=== PATIENT | female | born 1940 | race Caucasian/White ===

== ENCOUNTER 2021-08-05 14:03 | Inpatient (IN) ==
[2021-08-05 15:26] LABS: Basophils % 0.5 % (0.0-0.8); Eosinophils % 2.2 % (0.00-10.9); Hematocrit 20.7 VOL% (35.7-47.0); Lymphocytes # 0.5 10*3/uL (1.4-4.0); Lymphocytes % 24.2 % (21.3-54.2); Mean Corpuscular HGB Conc 28.5 GM/DL (32-36); Mean Corpuscular Volume 79.3 FL (87-102); Mean Platelet Volume 10.9 FL (9.6-12.0); Monocytes # 0.3 10*3/uL (0.11-0.8); Monocytes % 15.6 % (1.7-12.7); Neutrophils % 57.5 % (38.7-73.9); Platelet Count 91 T/CUMM (130-400); Red Blood Count 2.61 MC/CUMM (3.8-5.5); Red Cell Distribution Width 16.4 % (9.3-17.3); White Blood Count 1.9 T/CUMM (4-12)
[2021-08-05 15:32] LABS: PT Patient Result 11.1 SECS (10.5-12.0)
[2021-08-05 15:35] LABS: Hemoglobin 5.9 GM/DL (12.0-16.0)
[2021-08-05 15:37] LABS: Osmolality,Calculated 277.5 MOS/KG (273-304); Potassium 3.6 MMOL/L (3.5-5.1)
[2021-08-05] MEDS ORDERED: guaiFENesin/DM ER 600-30 MG TABLET PO PRN (15:50)
[2021-08-05] MEDS ORDERED: DOCUSATE SODIUM 100 MG CAPSULE PO PRN (15:50)
[2021-08-05] MEDS ORDERED: NICOTINE 21 MG/24 HR PATCH TRANSDERM PRN (15:50)
[2021-08-05] MEDS ORDERED: GLUCAGON 1 MG VIAL IM PRN (15:50)
[2021-08-05] MEDS ORDERED: ACETAMINOPHEN 325 MG TABLET PO PRN (15:50)
[2021-08-05] MEDS ORDERED: ONDANSETRON 4 MG/2 ML VIAL IV PRN (15:50)
[2021-08-05] MEDS ORDERED: SODIUM CHLORIDE 0.9% 1,000 ML IV PRN (15:53)
[2021-08-05 15:57] LABS: Band Neutrophils 1 % (0-10); Eosinophils 3 % (0-10); Lymphocytes 28 % (20-55); Nucleated Red Blood Cells 1 (0-5); Total Cells Counted 100
[2021-08-05 15:58] LABS: Acanthocytes Few; Anisocytosis 1+; Elliptocytes 1+; Hypochromia 1+; Macrocytosis Slight; Microcytosis 1+; Platelet Estimate Decreased; Poikilocytosis 1+; Polychromasia 1+; Schistocytes Few; Target Cells 1+
[2021-08-05 15:59] LABS: Atypical Lymphocytes Few
[2021-08-05] MEDS ORDERED: DEXTROSE 10% 250 ML BAG IV PRN (16:06)
[2021-08-05 16:10] LABS: Basophils % 0.5 % (0.0-0.8); Eosinophils % 2.2 % (0.00-10.9); Hematocrit 20.7 VOL% (35.7-47.0); Lymphocytes # 0.5 10*3/uL (1.4-4.0); Lymphocytes % 24.2 % (21.3-54.2); Mean Corpuscular HGB Conc 28.5 GM/DL (32-36); Mean Corpuscular Volume 79.3 FL (87-102); Mean Platelet Volume 10.9 FL (9.6-12.0); Monocytes # 0.3 10*3/uL (0.11-0.8); Monocytes % 15.6 % (1.7-12.7); Neutrophils % 57.5 % (38.7-73.9); Platelet Count 91 T/CUMM (130-400); Red Blood Count 2.61 MC/CUMM (3.8-5.5); Red Cell Distribution Width 16.4 % (9.3-17.3); White Blood Count 1.9 T/CUMM (4-12)
[2021-08-05 16:12] LABS: Hemoglobin 5.9 GM/DL (12.0-16.0)
[2021-08-05 16:24] LABS: Anisocytosis 1+; Atypical Lymphocytes Few; Band Neutrophils 1 % (0-10); Eosinophils 3 % (0-10); Hypochromia 1+; Lymphocytes 28 % (20-55); Microcytosis 1+; Nucleated Red Blood Cells 1 (0-5); Poikilocytosis 1+; Polychromasia 1+; Total Cells Counted 100
[2021-08-05 16:25] LABS: Acanthocytes Few; Elliptocytes 1+; Macrocytosis Slight; Platelet Estimate Decreased; Schistocytes Few; Target Cells 1+
[2021-08-05 17:17] LABS: Sedimentation Rate-Westergren 58 MM/HR (0-30)
[2021-08-05 17:32] LABS: Folate 17.83 NG/ML (5.38-24.0); Vitamin B12 663 PG/ML (211-911)
[2021-08-05] MEDS: ZALEPLON 5 MG CAPSULE PO PRN ×2 (20:55→23:12)
[2021-08-05] MEDS: hydrALAZINE 20 MG/1 ML VIAL IV PRN (23:12)
[2021-08-06] MEDS ORDERED: amLODIPine 10 MG TABLET PO ONE (00:38)
[2021-08-06 03:55] LABS: Basophils % 0.7 % (0.0-0.8); Hematocrit 28.5 VOL% (35.7-47.0); Immature Granulocytes % 0.3 %; Immature Granulocytes Absolute 0.01 #; Lymphocytes # 0.5 10*3/uL (1.4-4.0); Lymphocytes % 17.4 % (21.3-54.2); Mean Corpuscular HGB Conc 30.5 GM/DL (32-36); Mean Corpuscular Volume 79.4 FL (87-102); Mean Platelet Volume 11.7 FL (9.6-12.0); Monocytes # 0.4 10*3/uL (0.11-0.8); Monocytes % 12.8 % (1.7-12.7); Neutrophils % 67.8 % (38.7-73.9); Red Cell Distribution Width 16.2 % (9.3-17.3)
[2021-08-06 04:02] LABS: Platelet Count 89 T/CUMM (130-400)
[2021-08-06 04:03] LABS: Hemoglobin 8.7 GM/DL (12.0-16.0); Red Blood Count 3.59 MC/CUMM (3.8-5.5)
[2021-08-06 04:41] LABS: Calcium 7.9 MG/DL (8.5-10.1); Osmolality,Calculated 276.5 MOS/KG (273-304); Potassium 3.3 MMOL/L (3.5-5.1); Thyroid Stimulating Hormone 15.7 uIU/ml (0.358-3.74)
[2021-08-06 04:49] LABS: Hypochromia 1+; Microcytosis 1+
[2021-08-06 04:50] LABS: Elliptocytes Few; Platelet Estimate Decreased; Polychromasia Slight
[2021-08-06] MEDS: LEVOTHYROXINE 125 MCG TABLET PO SCH (08:23)
[2021-08-06] MEDS ORDERED: amLODIPine 10 MG TABLET PO SCH (09:00)
[2021-08-06] MEDS ORDERED: IRON SUCROSE 200 MG in SODIUM CHLORIDE 0.9% 100 ML IV SCH (09:00)
[2021-08-06] MEDS ORDERED: POTASSIUM CHLORIDE 20 MEQ TABLET PO ONE (09:22)
[2021-08-06] MEDS: FERRIC GLUCONATE COMPLEX 125 MG in SODIUM CHLORIDE 0.9% 100 ML IV SCH (09:24)
[2021-08-06] MEDS: cycloSPORINE OPH EMUL 1 VIAL BOTH EYES SCH ×2 (10:27→21:22)
[2021-08-06] MEDS: FLUTICASONE 50 MCG NASAL SPRAY 16 GM BOTTLE BOTH NARES SCH (10:27)
[2021-08-06] MEDS: ALFUZOSIN 10 MG TABLET PO SCH (10:28)
[2021-08-06] MEDS: POLYETHYLENE GLYCOL POWDER 17 GM PACK PO SCH (10:29)
[2021-08-06] MEDS: GABAPENTIN 100 MG CAPSULE PO SCH (21:22)
[2021-08-06] MEDS: ZOLPIDEM 5 MG TABLET PO PRN (21:23)
[2021-08-07] MEDS: diphenhydrAMINE CAP 25 MG CAPSULE PO PRN (02:34)
[2021-08-07 04:27] LABS: Basophils % 0.5 % (0.0-0.8); Eosinophils # 0.1 10*3/uL (0.0-0.87); Eosinophils % 4.5 % (0.00-10.9); Hematocrit 26.4 VOL% (35.7-47.0); Hemoglobin 7.9 GM/DL (12.0-16.0); Immature Granulocytes % 0.5 %; Immature Granulocytes Absolute 0.01 #; Lymphocytes # 0.4 10*3/uL (1.4-4.0); Lymphocytes % 19.9 % (21.3-54.2); Mean Corpuscular HGB Conc 29.9 GM/DL (32-36); Mean Corpuscular Volume 81.2 FL (87-102); Mean Platelet Volume 11.3 FL (9.6-12.0); Monocytes # 0.4 10*3/uL (0.11-0.8); Monocytes % 16.7 % (1.7-12.7); Neutrophils % 57.9 % (38.7-73.9); Red Blood Count 3.25 MC/CUMM (3.8-5.5); Red Cell Distribution Width 16.8 % (9.3-17.3); White Blood Count 2.2 T/CUMM (4-12)
[2021-08-07 04:35] LABS: Platelet Count 81 T/CUMM (130-400)
[2021-08-07 04:46] LABS: Calcium 7.7 MG/DL (8.5-10.1); Osmolality,Calculated 275.7 MOS/KG (273-304); Potassium 4.1 MMOL/L (3.5-5.1)
[2021-08-07 04:49] LABS: Eosinophils 5 % (0-10); Hypochromia 1+; Lymphocytes 15 % (20-55); Microcytosis 1+; Platelet Estimate Decreased; Total Cells Counted 100
[2021-08-07 07:50] LABS: Total Protein (Chem) 6.4 G/DL (6.4-8.3)
[2021-08-07 09:06] LABS: Albumin (SPE) 3.2 G/DL (3.2-5.3); Albumin (SPE) Rel % 50.3 %; Alpha 1 (SPE) 0.2 G/DL (0.1-0.4); Alpha 2 (SPE) 0.6 G/DL (0.4-1.0); Alpha 2 (SPE) Rel % 9.9 %; Beta (SPE) 0.7 G/DL (0.5-1.1); Beta (SPE) Rel % 11.2 %; Gamma (SPE) 1.6 G/DL (0.7-1.7); Gamma (SPE) Rel % 25.6 %
[2021-08-07] MEDS: ALFUZOSIN 10 MG TABLET PO SCH ×3 (09:11→20:32)
[2021-08-07] MEDS: GABAPENTIN 100 MG CAPSULE PO SCH ×3 (09:12→20:32)
[2021-08-07] MEDS: FERRIC GLUCONATE COMPLEX 125 MG in SODIUM CHLORIDE 0.9% 100 ML IV SCH (09:12)
[2021-08-07] MEDS: LEVOTHYROXINE 125 MCG TABLET PO SCH (09:12)
[2021-08-07] MEDS: FLUTICASONE 50 MCG NASAL SPRAY 16 GM BOTTLE BOTH NARES SCH (09:13)
[2021-08-07] MEDS: cycloSPORINE OPH EMUL 1 VIAL BOTH EYES SCH ×2 (09:13→20:32)
[2021-08-07] MEDS: POLYETHYLENE GLYCOL POWDER 17 GM PACK PO SCH ×2 (09:30→20:32)
[2021-08-07 10:23] LABS: Hemoglobin A1 (Alkaline) 97.6 % (96.5-98.5); Hemoglobin A2 (Alkaline) 2.4 % (1.5-3.5)
[2021-08-07] MEDS: methylPREDNISolone SOD SUC 40 MG/1 ML VIAL IV SCH (12:16)
[2021-08-07] MEDS: ZOLPIDEM 5 MG TABLET PO PRN (20:32)
[2021-08-08 04:27] LABS: Basophils % 0.2 % (0.0-0.8); Hematocrit 29.3 VOL% (35.7-47.0); Hemoglobin 8.9 GM/DL (12.0-16.0); Immature Granulocytes % 0.2 %; Immature Granulocytes Absolute 0.01 #; Lymphocytes # 0.5 10*3/uL (1.4-4.0); Lymphocytes % 11.6 % (21.3-54.2); Mean Corpuscular HGB Conc 30.4 GM/DL (32-36); Mean Corpuscular Volume 81.4 FL (87-102); Monocytes # 0.4 10*3/uL (0.11-0.8); Monocytes % 8.4 % (1.7-12.7); Neutrophils % 79.6 % (38.7-73.9); Platelet Count 95 T/CUMM (130-400); Red Cell Distribution Width 17.3 % (9.3-17.3); White Blood Count 4.2 T/CUMM (4-12)
[2021-08-08 04:50] LABS: Calcium 8.2 MG/DL (8.5-10.1); Osmolality,Calculated 275.7 MOS/KG (273-304); Potassium 4.2 MMOL/L (3.5-5.1)
[2021-08-08 05:05] LABS: Hypochromia Slight; Microcytosis Slight; Ovalocytes Slight; Platelet Estimate Decreased
[2021-08-08] MEDS: FERRIC GLUCONATE COMPLEX 125 MG in SODIUM CHLORIDE 0.9% 100 ML IV SCH (09:29)
[2021-08-08] MEDS: LEVOTHYROXINE 125 MCG TABLET PO SCH (09:29)
[2021-08-08] MEDS: GABAPENTIN 100 MG CAPSULE PO SCH ×3 (09:29→21:15)
[2021-08-08] MEDS: cycloSPORINE OPH EMUL 1 VIAL BOTH EYES SCH ×2 (09:29→21:15)
[2021-08-08] MEDS: FLUTICASONE 50 MCG NASAL SPRAY 16 GM BOTTLE BOTH NARES SCH (09:30)
[2021-08-08] MEDS ORDERED: IRON DEXTRAN 25 MG in SYRINGE 1 EACH IV ONE (12:34)
[2021-08-08] MEDS ORDERED: ACETAMINOPHEN 325 MG TABLET PO ONE (12:35)
[2021-08-08] MEDS ORDERED: FAMOTIDINE 20 MG/2 ML VIAL IV ONE (12:36)
[2021-08-08] MEDS ORDERED: DEXAMETHASONE 10 MG/1 ML VIAL IV ONE (12:37)
[2021-08-08] MEDS ORDERED: diphenhydrAMINE CAP 25 MG CAPSULE PO ONE (12:38)
[2021-08-08] MEDS ORDERED: DEXAMETHASONE INJ 20 MG in SODIUM CHLORIDE 0.9% 50 ML IV ONE (13:15)
[2021-08-08] MEDS ORDERED: FAMOTIDINE INJ 40 MG in SODIUM CHLORIDE 0.9% 100 ML IV ONE (13:30)
[2021-08-08] MEDS: methylPREDNISolone SOD SUC 40 MG/1 ML VIAL IV SCH ×3 (13:30→23:19)
[2021-08-08] MEDS ORDERED: IRON DEXTRAN 1,000 MG in SODIUM CHLORIDE 0.9% 500 ML IV ONE (14:00)
[2021-08-08] MEDS: ALFUZOSIN 10 MG TABLET PO SCH (21:15)
[2021-08-08] MEDS: POLYETHYLENE GLYCOL POWDER 17 GM PACK PO SCH (21:15)
[2021-08-08] MEDS: ZOLPIDEM 5 MG TABLET PO PRN (22:33)
[2021-08-09] MEDS: diphenhydrAMINE CAP 25 MG CAPSULE PO PRN (01:00)
[2021-08-09] MEDS ORDERED: MELATONIN 3 MG TABLET PO ONE (02:14)
[2021-08-09 03:58] LABS: Hematocrit 29.7 VOL% (35.7-47.0); Hemoglobin 9.2 GM/DL (12.0-16.0); Immature Granulocytes % 0.8 %; Immature Granulocytes Absolute 0.02 #; Lymphocytes # 0.3 10*3/uL (1.4-4.0); Lymphocytes % 14.2 % (21.3-54.2); Mean Corpuscular Volume 81.4 FL (87-102); Mean Platelet Volume 10.6 FL (9.6-12.0); Monocytes # 0.1 10*3/uL (0.11-0.8); Monocytes % 2.1 % (1.7-12.7); Neutrophils % 82.9 % (38.7-73.9); Platelet Count 89 T/CUMM (130-400); Red Blood Count 3.65 MC/CUMM (3.8-5.5); Red Cell Distribution Width 17.7 % (9.3-17.3); White Blood Count 2.4 T/CUMM (4-12)
[2021-08-09 04:16] LABS: Calcium 8.1 MG/DL (8.5-10.1); Osmolality,Calculated 279.7 MOS/KG (273-304)
[2021-08-09 04:21] LABS: Burr Cells Slight; Hypochromia Slight; Microcytosis Slight; Ovalocytes Slight; Platelet Estimate Decreased
[2021-08-09] MEDS: hydrALAZINE 20 MG/1 ML VIAL IV PRN (05:20)
[2021-08-09] MEDS: LEVOTHYROXINE 125 MCG TABLET PO SCH (08:18)
[2021-08-09] MEDS: GABAPENTIN 100 MG CAPSULE PO SCH ×3 (08:18→20:45)
[2021-08-09] MEDS: cycloSPORINE OPH EMUL 1 VIAL BOTH EYES SCH ×2 (08:19→20:46)
[2021-08-09] MEDS: FLUTICASONE 50 MCG NASAL SPRAY 16 GM BOTTLE BOTH NARES SCH (08:19)
[2021-08-09] MEDS: methylPREDNISolone SOD SUC 40 MG/1 ML VIAL IV SCH ×2 (12:00→22:38)
[2021-08-09] MEDS ORDERED: IRON SUCROSE 300 MG in SODIUM CHLORIDE 0.9% 100 ML IV ONE (18:00)
[2021-08-09] MEDS: ZOLPIDEM 5 MG TABLET PO PRN (20:45)
[2021-08-09] MEDS: POLYETHYLENE GLYCOL POWDER 17 GM PACK PO SCH (20:45)
[2021-08-09] MEDS: ALFUZOSIN 10 MG TABLET PO SCH (20:46)
[2021-08-10 05:16] LABS: Hematocrit 30.3 VOL% (35.7-47.0); Hemoglobin 9.2 GM/DL (12.0-16.0); Immature Granulocytes % 0.8 %; Immature Granulocytes Absolute 0.05 #; Lymphocytes # 0.3 10*3/uL (1.4-4.0); Lymphocytes % 4.9 % (21.3-54.2); Mean Corpuscular HGB Conc 30.4 GM/DL (32-36); Mean Corpuscular Volume 82.1 FL (87-102); Mean Platelet Volume 10.9 FL (9.6-12.0); Monocytes # 0.3 10*3/uL (0.11-0.8); Monocytes % 4.6 % (1.7-12.7); Neutrophils % 89.7 % (38.7-73.9); Platelet Count 98 T/CUMM (130-400); Red Blood Count 3.69 MC/CUMM (3.8-5.5); Red Cell Distribution Width 18.6 % (9.3-17.3); White Blood Count 6.3 T/CUMM (4-12)
[2021-08-10 05:23] LABS: Calcium 8.3 MG/DL (8.5-10.1); Osmolality,Calculated 278.8 MOS/KG (273-304); Potassium 4.2 MMOL/L (3.5-5.1)
[2021-08-10 05:50] LABS: Lymphocytes 4 % (20-55); Platelet Estimate Decreased; Total Cells Counted 100
[2021-08-10] MEDS: GABAPENTIN 100 MG CAPSULE PO SCH ×3 (08:33→20:48)
[2021-08-10] MEDS: FLUTICASONE 50 MCG NASAL SPRAY 16 GM BOTTLE BOTH NARES SCH (08:33)
[2021-08-10] MEDS: LEVOTHYROXINE 125 MCG TABLET PO SCH (08:33)
[2021-08-10] MEDS: methylPREDNISolone SOD SUC 40 MG/1 ML VIAL IV SCH (11:13)
[2021-08-10] MEDS: cycloSPORINE OPH EMUL 1 VIAL BOTH EYES SCH ×2 (14:09→20:49)
[2021-08-10 19:56] LABS: Parvovirus B19 By Rapid PCR Negative (Negative); Source PLASMA
[2021-08-10] MEDS: ZOLPIDEM 5 MG TABLET PO PRN (20:48)
[2021-08-10] MEDS: ALFUZOSIN 10 MG TABLET PO SCH (20:48)
[2021-08-10] MEDS: POLYETHYLENE GLYCOL POWDER 17 GM PACK PO SCH (20:49)
[2021-08-11 05:24] LABS: Basophils % 0.2 % (0.0-0.8); Eosinophils % 0.6 % (0.00-10.9); Hematocrit 30.5 VOL% (35.7-47.0); Hemoglobin 9.2 GM/DL (12.0-16.0); Immature Granulocytes % 0.9 %; Immature Granulocytes Absolute 0.04 #; Lymphocytes # 0.7 10*3/uL (1.4-4.0); Lymphocytes % 14.4 % (21.3-54.2); Mean Corpuscular HGB Conc 30.2 GM/DL (32-36); Mean Corpuscular Volume 82.7 FL (87-102); Monocytes # 0.6 10*3/uL (0.11-0.8); Monocytes % 11.8 % (1.7-12.7); Neutrophils % 72.1 % (38.7-73.9); Platelet Count 88 T/CUMM (130-400); Red Blood Count 3.69 MC/CUMM (3.8-5.5); Red Cell Distribution Width 19.6 % (9.3-17.3); White Blood Count 4.7 T/CUMM (4-12)
[2021-08-11 05:38] LABS: Calcium 8.6 MG/DL (8.5-10.1); Osmolality,Calculated 279.5 MOS/KG (273-304); Potassium 3.8 MMOL/L (3.5-5.1)
[2021-08-11 06:01] LABS: Anisocytosis 1+; Burr Cells Few; Macrocytosis Slight; Ovalocytes Few; Platelet Estimate Decreased
[2021-08-11] MEDS ORDERED: predniSONE 20 MG TABLET PO SCH (09:00)
[2021-08-11] MEDS: FLUTICASONE 50 MCG NASAL SPRAY 16 GM BOTTLE BOTH NARES SCH (09:25)
[2021-08-11] MEDS: GABAPENTIN 100 MG CAPSULE PO SCH (09:32)
[2021-08-11] MEDS: LEVOTHYROXINE 125 MCG TABLET PO SCH (09:32)
[2021-08-11 12:39] VITALS: BP 164/54
== END 2021-08-11 12:40 | disposition home or self-care (01) | DRG 812 ==
LOC: N.ED 14:03 → N.EDINP 16:47 → SUATTDRO 16:47 → N.CC 18:42 → N.TELES 08-09 17:29
PROVIDERS: ADMIT Internal Medicine; ATTEND Hospitalist